=== PATIENT | female | born 1985 | race Caucasian/White ===

== ENCOUNTER 2024-02-06 09:55 | Emergency (ER) | payer OTHER, SELFPAY | END 2024-02-06 11:50 | disposition home or self-care (01) | LOC: BURERS 09:55 | DX: S93.402A Sprain of unspecified ligament of left ankle, initial encounter (principal); W18.42XA Slipping, tripping and stumbling without falling due to stepping into hole or opening, initial encounter | CPT/HCPCS: 99283 ==